=== PATIENT | female | born 1985 | race Caucasian/White ===

== ENCOUNTER 2020-05-06 07:50 | Day surgery (SDCO) | payer OTHER, SELFPAY ==
[~2020-05-06] VITALS: Ht 173 cm; Wt 100.0 kg
[~2020-05-06 07:50] MED LIST: ADDERALL 30 MG30 MG PO; AIMOVIG AU140 MG/1 M SC; DESYREL50 MG PO; NAPROXEN500 MG PO; PROPRANOLOL HCL80 M1 PO
[2020-05-06 08:16] LABS: HCG (URINE) SCREEN NEGATIVE (NEGATIVE)
[2020-05-07 05:34] LABS: BASOPHIL 0.2 % (0-2); EOSINOPHIL 0 % (0-5); HGB 10.7 g/dl (12.5-16.0); LYMPHOCYTE 12.3 % (15-48); MCH 26.1 pg (25.0-31.0); MCHC 31.5 g/dL (32.0-36.0); MCV 82.9 fL (78.0-100.0); MONOCYTE 7.8 % (0-12); MPV 10.4 fL (6.0-9.5); NEUTROPHIL 79.3 % (41-80); NRBC 0; PLT 295 K/uL (150-400); RDW 13.3 % (11.5-14.0); WBC 11.9 K/uL (4.0-10.5)
--- NOTE | 2020-05-07 14:59 | NUR ---
Patient lives with - AJ. She is independent at home w/o needs. She does not have POA or living will. Plan is home with at discharge.
[2020-05-07] MEDS ORDERED: IBUPROFEN600 MG PO (16:20)
[2020-05-07] MEDS ORDERED: COLACE100 MG PO (16:20)
[2020-05-07] MEDS ORDERED: OXYCODONE-ACET1 EAC1 PO (16:20)
== END 2020-05-07 17:45 | disposition home or self-care (01) ==
LOC: FMS 07:50 → FSDC 07:50 → FMS 09:00
PROVIDERS: ADMIT Obstetrics & Gynecology
DX: N87.9 Dysplasia of cervix uteri, unspecified (principal); F41.9 Anxiety disorder, unspecified; F32.9 Major depressive disorder, single episode, unspecified; F90.9 Attention-deficit hyperactivity disorder, unspecified type; E66.9 Obesity, unspecified; Z68.34 Body mass index [BMI] 34.0-34.9, adult; Z87.891 Personal history of nicotine dependence; Z88.0 Allergy status to penicillin; Z88.1 Allergy status to other antibiotic agents; Z91.013 Allergy to seafood
CPT/HCPCS: 36415; 84703; 85025; 86850; 86900; 86901; G0378; J1100; J1170; J1580; J1885; J2250; J2270; J2405; J2704; J2710; J3010; J7120; J7121

== ENCOUNTER 2020-05-28 15:17 | Emergency (ER) | payer OTHER ==
[~2020-05-28 15:17] MED LIST changes: +COLACE100 MG PO; +IBUPROFEN600 MG PO; +OXYCODONE-ACET1 EAC1 PO
[2020-05-28 17:07] LABS: BASOPHIL 0.3 % (0-2); EOSINOPHIL 1.3 % (0-5); HCT 35.4 % (37.0-47.0); HGB 11.3 g/dl (12.5-16.0); MCH 26.5 pg (25.0-31.0); MCHC 31.9 g/dL (32.0-36.0); MCV 83.1 fL (78.0-100.0); MONOCYTE 6.1 % (0-12); MPV 10.4 fL (6.0-9.5); NEUTROPHIL 85.1 % (41-80); NRBC 0; PLT 273 K/uL (150-400); RBC 4.26 M/uL (4.20-5.40); RDW 13.5 % (11.5-14.0); WBC 11.9 K/uL (4.0-10.5)
[2020-05-28 17:08] LABS: BILIRUBIN NEGATIVE (NEGATIVE); BLOOD 1+ Ery/uL (NEGATIVE); CLARITY CLEAR (CLEAR); COLOR YELLOW (YELLOW); GLUCOSE (U) NORMAL (NORMAL); LEUKOCYTES 1+ Leu/uL (NEGATIVE); NITRITE NEGATIVE (NEGATIVE); PROTEIN TRACE (LOW) mg/dL (NEGATIVE); UROBILINOGEN 0.2 mg/dL (0.2-1.0); pH 8.5 (5.0-9.0)
[2020-05-28 17:12] LABS: BACTERIA TRACE; MUCOUS MODERATE; SQUAMOUS EPITHELIAL CELLS 20-50
[2020-05-28 17:16] LABS: ALBUMIN 3.4 g/dL (3.4-5.0); BILIRUBIN - TOTAL 0.6 mg/dL (0.2-1.0); BUN/CREAT RATIO (CALC) 17.4 RATIO; CREATININE 0.69 mg/dL (0.51-0.95); GLOBULIN (CALCULATION) 3.3 g/dL; POTASSIUM 3.4 mmol/L (3.5-5.1); TOTAL PROTEIN 6.7 g/dL (6.4-8.2)
[2020-05-28 19:14] LABS: CORONAVIRUS 2019 SARS-COV-2 NEGATIVE (NEGATIVE); INFLUENZA A NAA NEGATIVE (NEGATIVE)
[2020-05-28] MEDS ORDERED: NORCO 5-325 TA1 EACH PO (20:23)
[2020-05-28] MEDS ORDERED: BACTRIM DS TAB1 EACH PO (20:23)
== END 2020-05-28 21:00 | disposition home or self-care (01) ==
LOC: FER 15:17
PROVIDERS: Nurse Practitioner Family
DX: N83.201 Unspecified ovarian cyst, right side (principal); N39.0 Urinary tract infection, site not specified; Z88.0 Allergy status to penicillin; Z20.822 Contact with and (suspected) exposure to COVID-19
CPT/HCPCS: 36415; 80053; 81001; 83605; 85025; 87088; J1885; J1956; J2270; J2405; J7030; Q9967; U0002

== ENCOUNTER 2020-05-30 00:11 | Inpatient (IN) | payer OTHER ==
[~2020-05-30 00:11] MED LIST changes: +BACTRIM DS TAB1 EACH PO; +NORCO 5-325 TA1 EACH PO
[2020-05-30 00:42] LABS: BASOPHIL 0.2 % (0-2); EOSINOPHIL 1.8 % (0-5); HCT 39.4 % (37.0-47.0); HGB 12.6 g/dl (12.5-16.0); LYMPHOCYTE 5.2 % (15-48); MCH 26.1 pg (25.0-31.0); MCV 81.6 fL (78.0-100.0); MONOCYTE 5.5 % (0-12); MPV 10.3 fL (6.0-9.5); NEUTROPHIL 86.8 % (41-80); NRBC 0; PLT 324 K/uL (150-400); RBC 4.83 M/uL (4.20-5.40); RDW 13.7 % (11.5-14.0); WBC 14.6 K/uL (4.0-10.5)
[2020-05-30 00:55] LABS: ALBUMIN 3.3 g/dL (3.4-5.0); BILIRUBIN - TOTAL 0.8 mg/dL (0.2-1.0); BUN/CREAT RATIO (CALC) 19.4 RATIO; CREATININE 0.72 mg/dL (0.51-0.95); GLOBULIN (CALCULATION) 3.9 g/dL; POTASSIUM 3.4 mmol/L (3.5-5.1); TOTAL PROTEIN 7.2 g/dL (6.4-8.2)
[2020-05-30 00:58] LABS: LACTIC ACID 0.5 mmol/L (0.4-1.9)
[2020-05-30 01:04] LABS: BILIRUBIN 2+ mg/dL (NEGATIVE); BLOOD TRACE-LYSED Ery/uL (NEGATIVE); CLARITY HAZY (CLEAR); COLOR ORANGE (YELLOW); GLUCOSE (U) TRACE mg/dL (NORMAL); LEUKOCYTES TRACE Leu/uL (NEGATIVE); NITRITE POSITIVE (NEGATIVE); PROTEIN 2+ mg/dL (NEGATIVE); SPECIFIC GRAVITY >=1.030 (1.001-1.030); pH 5.5 (5.0-9.0)
[2020-05-30 01:10] LABS: BACTERIA 1+
--- NOTE | 2020-05-30 06:20 | NUR ---
0620: PT RECEIVED FROM ED VIA STRETCHER.
[2020-05-30] MEDS ORDERED: INDERAL LA80 MG PO (06:53)
[2020-05-30] MEDS ORDERED: ADDERALL 30 MG30 MG PO (06:53)
[2020-05-30] MEDS ORDERED: DESYREL50 MG PO (06:54)
--- NOTE | 2020-05-30 14:20 | NUR ---
CALLED DR. GARCIA TO ASK WHAT TIME HE WOULD BE SEEING PATIENT PER PATIENT REQUEST. DR. GARCIA STATED HE HAD TALKED TO DR. QUIROZ THIS MORNING AND WAS UNDER THE IMPRESSION THAT DR. QUIROZ WOULD BE SEE THE PATIENT. THIS AM REPORT THIS NURSE WAS TOLD DR. GARCIA WOULD BE FOLLOWING FOR DR. QUIROZ. DR. GARCIA WILL CALL DR. QUIROZ AND ONE OF THEM WILL SEE THE PATIENT TODAY
[2020-05-31 06:26] LABS: BASOPHIL 0.5 % (0-2); EOSINOPHIL 9.6 % (0-5); HCT 33.3 % (37.0-47.0); HGB 10.4 g/dl (12.5-16.0); LYMPHOCYTE 17.9 % (15-48); MCH 26.1 pg (25.0-31.0); MCHC 31.2 g/dL (32.0-36.0); MCV 83.5 fL (78.0-100.0); MONOCYTE 10.2 % (0-12); MPV 9.8 fL (6.0-9.5); NEUTROPHIL 61.3 % (41-80); NRBC 0; PLT 284 K/uL (150-400); RBC 3.99 M/uL (4.20-5.40); RDW 13.6 % (11.5-14.0); WBC 6.5 K/uL (4.0-10.5)
[2020-05-31 06:44] LABS: BUN/CREAT RATIO (CALC) 18.9 RATIO; CREATININE 0.53 mg/dL (0.51-0.95); POTASSIUM 3.2 mmol/L (3.5-5.1)
[2020-06-01 09:17] LABS: BASOPHIL 0.5 % (0-2); EOSINOPHIL 14.8 % (0-5); HCT 32.7 % (37.0-47.0); LYMPHOCYTE 19.9 % (15-48); MCH 25.7 pg (25.0-31.0); MCHC 30.6 g/dL (32.0-36.0); MCV 84.1 fL (78.0-100.0); MONOCYTE 13.6 % (0-12); MPV 10.7 fL (6.0-9.5); NEUTROPHIL 50.7 % (41-80); NRBC 0; PLT 244 K/uL (150-400); RBC 3.89 M/uL (4.20-5.40); RDW 13.8 % (11.5-14.0); WBC 5.5 K/uL (4.0-10.5)
[2020-06-01 09:33] LABS: BUN/CREAT RATIO (CALC) 16.7 RATIO; CREATININE 0.48 mg/dL (0.51-0.95); POTASSIUM 3.5 mmol/L (3.5-5.1)
[2020-06-02 06:15] LABS: BASOPHIL 0.5 % (0-2); EOSINOPHIL 12.7 % (0-5); HCT 29.9 % (37.0-47.0); HGB 9.5 g/dl (12.5-16.0); LYMPHOCYTE 22.7 % (15-48); MCH 26.2 pg (25.0-31.0); MCHC 31.8 g/dL (32.0-36.0); MCV 82.4 fL (78.0-100.0); MONOCYTE 10.6 % (0-12); MPV 9.8 fL (6.0-9.5); NRBC 0; PLT 300 K/uL (150-400); RBC 3.63 M/uL (4.20-5.40); RDW 13.7 % (11.5-14.0); WBC 5.8 K/uL (4.0-10.5)
[2020-06-02 06:45] LABS: BUN/CREAT RATIO (CALC) 7.7 RATIO; CREATININE 0.52 mg/dL (0.51-0.95); POTASSIUM 3.3 mmol/L (3.5-5.1)
[2020-06-03 06:33] LABS: BASOPHIL 0.5 % (0-2); EOSINOPHIL 10.3 % (0-5); HCT 31.1 % (37.0-47.0); HGB 9.8 g/dl (12.5-16.0); LYMPHOCYTE 24.5 % (15-48); MCH 25.8 pg (25.0-31.0); MCHC 31.5 g/dL (32.0-36.0); MCV 81.8 fL (78.0-100.0); MONOCYTE 8.9 % (0-12); MPV 9.5 fL (6.0-9.5); NEUTROPHIL 54.8 % (41-80); NRBC 0; PLT 295 K/uL (150-400); RDW 13.8 % (11.5-14.0); WBC 5.9 K/uL (4.0-10.5)
[2020-06-03 06:55] LABS: BUN/CREAT RATIO (CALC) 7.7 RATIO; CREATININE 0.52 mg/dL (0.51-0.95); MAGNESIUM 1.6 mg/dL (1.8-2.4); POTASSIUM 3.4 mmol/L (3.5-5.1)
[2020-06-03] MEDS ORDERED: METRONIDAZOLE500 MG PO (16:10)
[2020-06-03] MEDS ORDERED: ZOFRAN4 M1 PO (16:10)
[2020-06-03] MEDS ORDERED: NORCO 5-325 TA1 EACH PO (16:10)
[2020-06-03] MEDS ORDERED: LEVAQUIN500 MG PO (16:10)
== END 2020-06-03 16:30 | disposition home or self-care (01) | DRG 863 ==
LOC: FER 00:11 → FMS 05:28
PROVIDERS: Allergy & Immunology Allergy; Emergency Medicine Emergency Medical Services; Internal Medicine; ADMIT Internal Medicine
DX: T81.43XA Infection following a procedure, organ and space surgical site, initial encounter (principal); K56.600 Partial intestinal obstruction, unspecified as to cause; N73.9 Female pelvic inflammatory disease, unspecified; N83.201 Unspecified ovarian cyst, right side; G43.909 Migraine, unspecified, not intractable, without status migrainosus; Z20.822 Contact with and (suspected) exposure to COVID-19; I10 Essential (primary) hypertension; Z87.891 Personal history of nicotine dependence; Z88.0 Allergy status to penicillin; Z88.1 Allergy status to other antibiotic agents; E87.6 Hypokalemia
CPT/HCPCS: 36415; 74018; 74019; 74250; 76830; 80048; 80053; 81001; 83605; 83690; 83735; 84145; 85025; 87040; 87088; 93005; 94010; 94667; 94668; 96372; J0692; J2270; J2405; J3475; J3480; J7030; Q9967; U0002